=== PATIENT | male | born 1995 | race American Indian/Alaskan Native ===

== ENCOUNTER 2019-12-20 13:27 | Emergency (ER) | payer SELFPAY ==
[2019-12-20 13:38] VITALS: BP 164/112
[2019-12-20] MEDS ORDERED: dexAMETHasone 4 MG/ML VIAL IM ONE (14:04)
--- NOTE | 2019-12-20 14:04 | Emergency Department Report ---
ED Rash HPI - HPI Chief Complaint: Skin Rash Stated Complaint: RASH RT ARM/BACK Time Seen by Provider: 12/20/19 13:50 Duration: 5 Days Location: Other Suspected Cause: Unknown Rash Symptoms: Yes Itching, No Facial Swelling, No Tongue/Oral Swelling, No Breathing Difficulties, No Choking Sensation, No Wheezing/Dyspnea, No Peeling, No Blistering, No Fever, No Lightheaded, No Malaise, No Myalgias Severity: mild Other History: Patient is a 24-year-old -[place] that comes to the ER with a rash today. It started on his arms and is progressed to his torso. Nobody in the home has the rash. Patient has no known new exposure or ingestion of something new. He states he was not working in the yard. He has no systemic symptoms. He has no fever or chills. There are no oral or conjunctival lesions. Patient has acute on chronic hypertension his blood pressure is elevated today states that he did not take his lisinopril today. Patient denies chest pain or shortness of breath. He is ambulatory nontoxic on arrival to the ER. ED Review of Systems ROS: Stated complaint: RASH RT ARM/BACK Other details as noted in HPI Comment: All other systems reviewed and negative ED Past Medical Hx - Past Medical History Previous Medical History?: Yes Hx Hypertension: Yes Additional medical history: Obese - Surgical History Past Surgical History?: No - Family History Family history: no significant - Social History Smoking Status: Never Smoker Substance Use Type: None - Medications Home Medications: Home Medications Medication Instructions Recorded Confirmed Last Taken Type hydrOXYzine PAMOATE [Vistaril] 25 mg PO Q6HR PRN #12 capsule 12/20/19 Unknown Rx predniSONE [Deltasone] 20 mg PO DAILY #5 tablet 12/20/19 Unknown Rx Rash Exam - Exam General: Vital signs noted. No distress. Alert and acting appropriately. HEENT: No Periorbital Edema, No Conjuctival Injection, No Chemosis, No Perioral Edema, No Tongue Edema, No Uvular Edema, No Compromised Airway, No Drooling Lungs: Yes Good Air Exchange (Normal Breath Sounds), No Wheezes, No Ronchi, No Stridor, No Cough, No Labored Respirations, No Retractions, No Use of Accessory Muscles, No Other Abnormal Lung Sounds Heart: Yes Regular, No Murmur Skin: Yes Other Other: Positive: Abdomen Normal, Neurologic Normal, Musculoskeletal Normal ED Course Vital Signs 12/20/19 13:37 Temperature 98.0 F Pulse Rate 75 Respiratory 18 Rate Blood Pressure 164/112 O2 Sat by Pulse 98 Oximetry ED Medical Decision Making - Medical Decision Making abc intact vss no fever no one in home has same itches at night, not during the day diffuse; started on arms, rash is macular papular. He has open areas from where he was scratching. No systemic signs and symptoms. No oral or conjunctival lesions Vital Signs 12/20/19 13:37 Temperature 98.0 F Pulse Rate 75 Respiratory 18 Rate Blood Pressure 164/112 O2 Sat by Pulse 98 Oximetry a/c htn did not take lisinopril this am no cp no sob No focal neuro deficit Patient has a PCP to follow-up with. Patient given a Decadron injection in the ER today. Patient being discharged home on prednisone and Vistaril. He has been instructed to follow-up with PCP if this persists. he verbalizes understanding - Differential Diagnosis rash Critical care attestation.: If time is entered above; I have spent that time in minutes in the direct care of this critically ill patient, excluding procedure time. ED Disposition Clinical Impression: Rash, History of hypertension, Non-adherence to medical treatment Disposition: DC-01 TO HOME OR SELFCARE Is pt being admited?: No Does the pt Need Aspirin: No Condition: Stable Instructions: Acute Rash (ED) Additional Instructions: med as ordered today follow up with pcp if persists referral below Prescriptions: predniSONE [Deltasone] 20 mg PO DAILY #5 tablet hydrOXYzine PAMOATE [Vistaril] 25 mg PO Q6HR PRN #12 capsule PRN Reason: Rash Referrals: BENY DAWKINS MD [Staff Physician] - 3-5 Days Time of Disposition: 14:03
== END 2019-12-20 14:41 | disposition home or self-care (01) ==
LOC: ED 13:27
DX: R21 Rash and other nonspecific skin eruption (principal); I10 Essential (primary) hypertension; E66.9 Obesity, unspecified; Z91.19 Patient's noncompliance with other medical treatment and regimen; Z68.33 Body mass index [BMI] 33.0-33.9, adult; Z79.899 Other long term (current) drug therapy; Z88.8 Allergy status to other drugs, medicaments and biological substances
CPT/HCPCS: 96372; 99282; J1100